=== PATIENT | male | born 1965 | race Caucasian/White ===

== ENCOUNTER 2017-02-01 12:43 | Inpatient (IN) | payer MEDICAID ==
[~2017-02-01] VITALS: Ht 180.3 cm; Wt 120.7 kg
[2017-02-01 14:59] LABS: BASOPHIL % 0.5 % (0-2); PLATELET COUNT 178 x10^3mcL (130-400); RED CELL DISTRIBUTION WIDTH 14.5 % (11.5-14.5)
[2017-02-01 15:08] LABS: CALCIUM 8.9 mg/dL (8.5-10.1); CARBON DIOXIDE 27.5 mmol/L (21-32); CHLORIDE SERUM 105 mmol/L (98-107); CREATININE SERUM 0.9 mg/dL (0.7-1.3); GFR1 > 60 mL/min; GLUCOSE SERUM 88 mg/dL (74-106); POTASSIUM SERUM 4.3 mmol/L (3.5-5.1); SODIUM SERUM 142 mmol/L (136-145)
[2017-02-01 15:11] LABS: ALBUMIN 4.3 g/dL (3.4-5.0); ALKALINE PHOSPHATASE 93 U/L (46-116); ALT/SGPT 124 U/L (16-63); AST/SGOT 103 U/L (15-37); BILIRUBIN TOTAL 0.5 mg/dL (0.20-1.00); CHOLESTEROL 199 mg/dL (<200); URIC ACID 6.2 mg/dL (3.5-7.2)
[2017-02-01 15:19] LABS: HDL CHOLESTEROL 86 mg/dL (40-60); TOTAL PROTEIN, SERUM 8.7 g/dL (6.4-8.2)
[2017-02-01 17:59] VITALS: BP 147/98
[2017-02-01 18:02] VITALS: Ht 180.3 cm; Wt 120.7 kg
[2017-02-01 18:35] LABS: T3 TOTAL 0.95 ng/mL
[2017-02-01 19:02] LABS: CHOLESTEROL/HDL RATIO 2.4
[2017-02-01 19:10] LABS: FREE T4 0.72 ng/dL (0.76-1.46); FREE THYROXINE INDEX 2.1 ug/dL (1.4-4.5); T4(THYROXINE) 6.5 ug/dL (4.7-13.3)
[2017-02-01 20:28] LABS: microscopic required? NO
[2017-02-01 20:38] LABS: UA SPECIFIC GRAVITY <=1.005 (1.005-1.035); urine erythrocyte NEGATIVE (NEGATIVE)
[2017-02-01 20:53] LABS: AMPHETAMINE QUAL UR NONE DETECTED (NEG <=1000)
[2017-02-01 21:28] VITALS: BP 136/90
[2017-02-02 05:00] VITALS: BP 132/81
[2017-02-02 06:46] LABS: CALCIUM 8.3 mg/dL (8.5-10.1); CARBON DIOXIDE 26.4 mmol/L (21-32); CHLORIDE SERUM 106 mmol/L (98-107); CREATININE SERUM 0.8 mg/dL (0.7-1.3); GFR1 > 60 mL/min; GLUCOSE SERUM 102 mg/dL (74-106); PHOSPHOROUS 3.2 mg/dL (2.5-4.9); POTASSIUM SERUM 3.7 mmol/L (3.5-5.1); SODIUM SERUM 142 mmol/L (136-145)
[2017-02-02 07:25] LABS: BASOPHIL % 0.3 % (0-2); PLATELET COUNT 161 x10^3mcL (130-400); RED CELL DISTRIBUTION WIDTH 14.7 % (11.5-14.5)
[2017-02-02 10:00] VITALS: BP 140/98
[2017-02-02 14:00] VITALS: BP 145/94
[2017-02-02] MEDS ORDERED: LASIX20 MG PO (17:22)
[2017-02-02] MEDS ORDERED: ATIVAN1 MG PO (17:22)
[2017-02-02 17:31] VITALS: BP 145/94
[2017-02-02 18:11] VITALS: BP 128/97
[2017-02-02 18:12] VITALS: BP 130/104
== END 2017-02-02 20:34 | disposition home or self-care (01) | DRG 243 ==
LOC: ED 12:43 → DU 16:04 → MU 02-02 20:15
PROVIDERS: Emergency Medicine; ADMIT Family Medicine
DX: K21.9 Gastro-esophageal reflux disease without esophagitis (principal); G92 Toxic encephalopathy; I50.43 Acute on chronic combined systolic (congestive) and diastolic (congestive) heart failure; I11.0 Hypertensive heart disease with heart failure; E11.42 Type 2 diabetes mellitus with diabetic polyneuropathy; F10.239 Alcohol dependence with withdrawal, unspecified; F33.1 Major depressive disorder, recurrent, moderate; B19.20 Unspecified viral hepatitis C without hepatic coma; F15.21 Other stimulant dependence, in remission; F14.21 Cocaine dependence, in remission; Z68.36 Body mass index [BMI] 36.0-36.9, adult; F17.210 Nicotine dependence, cigarettes, uncomplicated
CPT/HCPCS: 80307; 83880; 84439; G0480; J1940; J2060; J7030; Q0092

== ENCOUNTER 2017-03-27 22:39 | Inpatient (IN) | payer MEDICAID ==
[~2017-03-27] VITALS: Ht 180.3 cm; Wt 120.7 kg
[~2017-03-27 22:39] MED LIST: ATIVAN1 MG PO; LASIX20 MG PO
[2017-03-27 23:09] LABS: PLATELET COUNT 226 x10^3mcL (130-400); RED CELL DISTRIBUTION WIDTH 14.1 % (11.5-14.5)
[2017-03-27 23:18] LABS: CALCIUM 8.5 mg/dL (8.5-10.1); CHLORIDE SERUM 183 mmol/L (98-107); CREATININE SERUM 1.2 mg/dL (0.7-1.3); GFR1 > 60 mL/min; GLUCOSE SERUM 116 mg/dL (74-106); POTASSIUM SERUM 3.6 mmol/L (3.5-5.1); SODIUM SERUM 143 mmol/L (136-145)
[2017-03-27 23:23] LABS: ALKALINE PHOSPHATASE 85 U/L (46-116); ALT/SGPT 205 U/L (16-63); AST/SGOT 107 U/L (15-37); BILIRUBIN TOTAL 0.7 mg/dL (0.20-1.00); TOTAL PROTEIN, SERUM 7.2 g/dL (6.4-8.2)
[2017-03-27 23:24] LABS: ALBUMIN 3.3 g/dL (3.4-5.0)
[2017-03-28 01:26] LABS: CALCIUM 8.3 mg/dL (8.5-10.1); CARBON DIOXIDE 27.6 mmol/L (21-32); CHLORIDE SERUM 107 mmol/L (98-107); CREATININE SERUM 1.1 mg/dL (0.7-1.3); GFR1 > 60 mL/min; GLUCOSE SERUM 142 mg/dL (74-106); POTASSIUM SERUM 3.5 mmol/L (3.5-5.1); SODIUM SERUM 142 mmol/L (136-145)
[2017-03-28 01:39] VITALS: BP 133/95
[2017-03-28 01:39] LABS: CHOLESTEROL/HDL RATIO 2.8; PHOSPHOROUS 3.7 mg/dL (2.5-4.9)
[2017-03-28 01:44] LABS: FREE T4 1.04 ng/dL (0.76-1.46); FREE THYROXINE INDEX 2.3 ug/dL (1.4-4.5); T4(THYROXINE) 7.2 ug/dL (4.7-13.3)
[2017-03-28 03:08] LABS: T3 TOTAL 1.58 ng/mL
[2017-03-28 04:57] VITALS: BP 135/81
[2017-03-28 10:17] VITALS: BP 146/100
[2017-03-28 14:15] VITALS: BP 133/93
[2017-03-28 15:36] LABS: microscopic required? NO
[2017-03-28 15:56] LABS: urine erythrocyte NEGATIVE (NEGATIVE)
[2017-03-28 16:14] LABS: AMPHETAMINE QUAL UR NONE DETECTED (NEG <=1000)
[2017-03-28 17:35] VITALS: BP 130/96
[2017-03-28 21:37] VITALS: BP 134/51
[2017-03-29 05:32] VITALS: BP 138/88
[2017-03-29 06:04] LABS: BASOPHIL % 0.3 % (0-2); PLATELET COUNT 209 x10^3mcL (130-400); RED CELL DISTRIBUTION WIDTH 14.1 % (11.5-14.5)
[2017-03-29 06:23] LABS: ALKALINE PHOSPHATASE 66 U/L (46-116); ALT/SGPT 163 U/L (16-63); AST/SGOT 89 U/L (15-37); BILIRUBIN TOTAL 0.66 mg/dL (0.20-1.00); CALCIUM 8.2 mg/dL (8.5-10.1); CARBON DIOXIDE 21.6 mmol/L (21-32); CHLORIDE SERUM 112 mmol/L (98-107); CREATININE SERUM 0.9 mg/dL (0.7-1.3); GFR1 > 60 mL/min; GLUCOSE SERUM 105 mg/dL (74-106); POTASSIUM SERUM 3.5 mmol/L (3.5-5.1); SODIUM SERUM 144 mmol/L (136-145)
[2017-03-29 06:33] LABS: ALBUMIN 3.2 g/dL (3.4-5.0)
[2017-03-29 08:49] VITALS: BP 133/80
[2017-03-29 13:42] VITALS: BP 137/84
[2017-03-29 16:58] VITALS: BP 140/83
[2017-03-29 21:14] VITALS: BP 141/80
[2017-03-30 05:20] VITALS: BP 124/90
[2017-03-30 06:29] LABS: CALCIUM 8.2 mg/dL (8.5-10.1); CARBON DIOXIDE 21.2 mmol/L (21-32); CHLORIDE SERUM 110 mmol/L (98-107); GFR1 > 60 mL/min; GLUCOSE SERUM 109 mg/dL (74-106); MAGNESIUM 2.2 mg/dL (1.8-2.4); POTASSIUM SERUM 3.4 mmol/L (3.5-5.1); SODIUM SERUM 142 mmol/L (136-145)
[2017-03-30 06:40] LABS: BASOPHIL % 0.5 % (0-2); PLATELET COUNT 233 x10^3mcL (130-400)
[2017-03-30 09:38] VITALS: BP 144/104
== END 2017-03-30 11:28 | disposition left against medical advice (07) | DRG 243 ==
LOC: ED 22:39 → DU 03-28 00:37
PROVIDERS: Emergency Medicine; Family Medicine; ADMIT Family Medicine
DX: K21.9 Gastro-esophageal reflux disease without esophagitis (principal); N17.0 Acute kidney failure with tubular necrosis; E44.0 Moderate protein-calorie malnutrition; F33.3 Major depressive disorder, recurrent, severe with psychotic symptoms; K70.0 Alcoholic fatty liver; F11.20 Opioid dependence, uncomplicated; B18.2 Chronic viral hepatitis C; F10.188 Alcohol abuse with other alcohol-induced disorder; F17.210 Nicotine dependence, cigarettes, uncomplicated; F41.1 Generalized anxiety disorder; Z68.37 Body mass index [BMI] 37.0-37.9, adult
CPT/HCPCS: 80307; 83880; 84439; G0480; J1170; J2060; J2270; J3411; J3420; J7030; J7620; Q0092

== ENCOUNTER 2019-04-28 14:16 | Emergency (ER) | payer MEDICAID ==
[~2019-04-28] VITALS: Ht 182.9 cm; Wt 93.9 kg
[2019-04-28 14:26] VITALS: Ht 182.9 cm; Wt 93.9 kg
[2019-04-28 17:38] VITALS: BP 129/73
== END 2019-04-28 17:38 | disposition home or self-care (01) ==
LOC: ED 14:16
DX: L02.413 Cutaneous abscess of right upper limb (principal); I10 Essential (primary) hypertension; B19.20 Unspecified viral hepatitis C without hepatic coma; F17.210 Nicotine dependence, cigarettes, uncomplicated; F10.10 Alcohol abuse, uncomplicated; F41.9 Anxiety disorder, unspecified; Z59.0 Homelessness
CPT/HCPCS: 82962; 90715; 99406; J2001

== ENCOUNTER 2019-04-30 13:45 | Emergency (ER) | payer MEDICAID ==
[~2019-04-30] VITALS: Ht 152.4 cm; Wt 92.5 kg
[2019-04-30 14:07] VITALS: BP 127/81; Ht 152.4 cm; Wt 92.5 kg
== END 2019-04-30 15:39 | disposition home or self-care (01) ==
LOC: ED 13:45
DX: L02.413 Cutaneous abscess of right upper limb (principal); F11.10 Opioid abuse, uncomplicated; R32 Unspecified urinary incontinence; F17.210 Nicotine dependence, cigarettes, uncomplicated; I10 Essential (primary) hypertension; F41.9 Anxiety disorder, unspecified; F10.10 Alcohol abuse, uncomplicated
CPT/HCPCS: 82962

== ENCOUNTER 2019-05-21 16:03 | Emergency (ER) | payer MEDICAID ==
[~2019-05-21] VITALS: Ht 182.9 cm; Wt 95.3 kg
[2019-05-21 16:20] VITALS: Ht 182.9 cm; Wt 95.3 kg
[2019-05-21 18:20] VITALS: BP 110/65
== END 2019-05-21 18:20 | disposition home or self-care (01) ==
LOC: ED 16:03
DX: L84 Corns and callosities (principal); G62.9 Polyneuropathy, unspecified; F11.20 Opioid dependence, uncomplicated; I10 Essential (primary) hypertension; B19.20 Unspecified viral hepatitis C without hepatic coma; F17.210 Nicotine dependence, cigarettes, uncomplicated; F41.9 Anxiety disorder, unspecified; Z98.890 Other specified postprocedural states; Z59.0 Homelessness
CPT/HCPCS: 99406

== ENCOUNTER 2019-09-23 21:18 | Inpatient (IN) | payer OTHER ==
[~2019-09-23] VITALS: Ht 182.9 cm; Wt 113.4 kg
[2019-09-23 21:23] VITALS: Ht 182.9 cm; Wt 113.4 kg
[2019-09-24 02:08] LABS: BASOPHIL % 0.1 % (0-2); PLATELET COUNT 235 x10^3mcL (130-400); RED CELL DISTRIBUTION WIDTH 13.9 % (11.5-14.5)
[2019-09-24 02:11] LABS: ALKALINE PHOSPHATASE 101 U/L (46-116); ALT/SGPT 38 U/L (16-63); AST/SGOT 31 U/L (15-37); CALCIUM 8.9 mg/dL (8.5-10.1); CARBON DIOXIDE 28.5 mmol/L (21-32); CHLORIDE SERUM 103 mmol/L (98-107); CREATININE SERUM 1.2 mg/dL (0.7-1.3); GFR1 > 60 mL/min; GLUCOSE SERUM 138 mg/dL (74-106); POTASSIUM SERUM 3.6 mmol/L (3.5-5.1); SODIUM SERUM 141 mmol/L (136-145)
[2019-09-24 02:28] LABS: BILIRUBIN TOTAL 0.76 mg/dL (0.20-1.00); TOTAL PROTEIN, SERUM 8.4 g/dL (6.4-8.2)
[2019-09-24 05:17] VITALS: BP 122/79
[2019-09-24 07:23] LABS: PLATELET COUNT 212 x10^3mcL (130-400); RED CELL DISTRIBUTION WIDTH 14.3 % (11.5-14.5)
[2019-09-24 07:36] LABS: BASOPHIL % 0 % (0-2); CALCIUM 8.2 mg/dL (8.5-10.1); CARBON DIOXIDE 25.4 mmol/L (21-32); CHLORIDE SERUM 106 mmol/L (98-107); CREATININE SERUM 0.9 mg/dL (0.7-1.3); GFR1 > 60 mL/min; GLUCOSE SERUM 145 mg/dL (74-106); POTASSIUM SERUM 3.5 mmol/L (3.5-5.1); SODIUM SERUM 142 mmol/L (136-145)
[2019-09-24 09:21] VITALS: BP 136/87
[2019-09-24 12:38] VITALS: BP 130/81
[2019-09-24 16:03] VITALS: BP 156/95
[2019-09-24 18:00] VITALS: BP 139/85
[2019-09-24 20:41] VITALS: BP 153/95
[2019-09-25 01:50] LABS: microscopic required? NO
[2019-09-25 02:01] LABS: UA SPECIFIC GRAVITY 1.015 (1.005-1.035); urine erythrocyte NEGATIVE (NEGATIVE)
[2019-09-25 02:10] LABS: AMPHETAMINE QUAL UR POSITIVE (See below)
[2019-09-25 05:39] VITALS: BP 145/91
[2019-09-25 06:39] LABS: PLATELET COUNT 233 x10^3mcL (130-400); RED CELL DISTRIBUTION WIDTH 14.2 % (11.5-14.5)
[2019-09-25 06:50] LABS: CALCIUM 7.9 mg/dL (8.5-10.1); CARBON DIOXIDE 25.7 mmol/L (21-32); CHLORIDE SERUM 104 mmol/L (98-107); CREATININE SERUM 0.7 mg/dL (0.7-1.3); GFR1 > 60 mL/min; GLUCOSE SERUM 157 mg/dL (74-106); PHOSPHOROUS 1.8 mg/dL (2.5-4.9); POTASSIUM SERUM 3.1 mmol/L (3.5-5.1); SODIUM SERUM 142 mmol/L (136-145)
[2019-09-25 08:39] LABS: BAND NEUTROPHIL 0 % (0-10); BASOPHIL 0 % (0-2); MONOCYTE 1 % (0-7); SEGMENTED NEUTROPHILS 97 % (37-75)
[2019-09-25 08:41] LABS: PLATELET MORPHOLOGY PLATELETS DECREASED; rbc morphology (normal/abnorm) ABNORMAL (NORMAL)
[2019-09-25 09:05] VITALS: BP 162/98
[2019-09-25 12:47] VITALS: BP 148/83
== END 2019-09-25 14:05 | disposition left against medical advice (07) | DRG 871 ==
LOC: ED 21:18 → DU 09-24 03:43
PROVIDERS: Emergency Medicine; ADMIT Internal Medicine
DX: A41.9 Sepsis, unspecified organism (principal); J18.9 Pneumonia, unspecified organism; J96.01 Acute respiratory failure with hypoxia; N17.0 Acute kidney failure with tubular necrosis; G92 Toxic encephalopathy; J44.1 Chronic obstructive pulmonary disease with (acute) exacerbation; J44.0 Chronic obstructive pulmonary disease with (acute) lower respiratory infection; F32.9 Major depressive disorder, single episode, unspecified; I10 Essential (primary) hypertension; B19.20 Unspecified viral hepatitis C without hepatic coma; F41.1 Generalized anxiety disorder; R65.20 Severe sepsis without septic shock; Z53.21 Procedure and treatment not carried out due to patient leaving prior to being seen by health care provider; Z59.0 Homelessness; Z79.899 Other long term (current) drug therapy
CPT/HCPCS: 36600; 83880; 87804; G0378; G0480; J0456; J0696; J1940; J2270; J2405; J2920; J2930; J7030; J7613; J7620; J7644